=== PATIENT | male | born 1965 | race Caucasian/White ===

== ENCOUNTER 2018-01-16 02:47 | Emergency (ER) | payer SELFPAY ==
[~2018-01-16] VITALS: Ht 193 cm; Wt 84.4 kg
[~2018-01-16 02:47] MED LIST: ATARAX,VISTARIL25 MG PO; AUGMENTIN875 MG PO; METOPROLOL PO; METOPROLOL SUCC25 MG PO; TOPROL XL50 MG PO
[2018-01-16 03:28] LABS: HEMATOCRIT 41.4 % (38.0-50.0); HEMOGLOBIN 14.3 G/DL (12.5-16.6); MCH 30.2 PG (29.0-34.0); MCHC 34.5 G/DL (30.0-36.0); MCV 87.5 FL (86-99); PLATELET COUNT 400 K/uL (156-360); RBC DIS.WIDTH-CV 13.1 % (11.8-14.6); RBC DIS.WIDTH-SD 41.9 % (39-53); RED BLOOD COUNT 4.73 M/uL (4.00-5.50)
[2018-01-16 03:40] LABS: ALBUMIN 4.4 g/dL (3.2-4.8); CHLORIDE 107 mEq/L (99-109); POTASSIUM 3.7 mEq/L (3.7-5.4); SODIUM 143 mEq/L (136-147)
[2018-01-16 03:42] LABS: GLUCOSE 127 mg/dL (70-99); TOTAL PROTEIN 6.7 g/dL (6.4-8.3)
[2018-01-16 03:44] LABS: TOTAL BILIRUBIN 0.4 mg/dL (0.0-1.0)
[2018-01-16 03:46] LABS: ALKALINE PHOSPHATASE 89 IU/L (3-129); GFR ESTIMATE (CALCULATED) > 59 mL/min/ (58.99-99999)
[2018-01-16 03:47] LABS: UREA NITROGEN (BUN) 19 mg/dL (9-23)
[2018-01-16 03:48] LABS: AST (GOT) 19 IU/L (2-34)
[2018-01-16 03:49] LABS: ALT (GPT) 29 IU/L (3-49)
[2018-01-16 03:57] LABS: APPEARANCE CLEAR ((CLEAR)); BILIRUBIN NEGATIVE; BLOOD SMALL; COLOR YELLOW ((YELLOW)); GLUCOSE (STRIP) NEGATIVE; KETONES NEGATIVE; LEUKOCYTES NEGATIVE; NITRITE NEGATIVE; PROTEIN (STRIP) NEGATIVE; SPECIFIC GRAVITY 1.026 (1.000-1.030); UROBILINOGEN 0.2 MG/DL (0.2-1.0)
[2018-01-16 03:59] LABS: BACTERIA NONE SEEN /HPF; EPITHELIAL CELLS RARE /HPF; MUCUS TRACE /LPF; RED BLOOD CELLS 0-5 /HPF (0-5); UCUL ADDED? NO; WHITE BLOOD CELLS NONE SEEN /HPF (0-5)
[2018-01-16 04:33] LABS: LIPASE 37 U/L (1.0-51.0)
[2018-01-16] MEDS ORDERED: BENTYL20 MG PO (04:41)
[2018-01-16 04:55] VITALS: BP 141/93
== END 2018-01-16 04:55 | disposition home or self-care (01) ==
LOC: EME 02:47
DX: R10.9 Unspecified abdominal pain (principal); K58.9 Irritable bowel syndrome, unspecified; F17.200 Nicotine dependence, unspecified, uncomplicated; Z86.79 Personal history of other diseases of the circulatory system; Z85.9 Personal history of malignant neoplasm, unspecified
CPT/HCPCS: 74177; 80053; 81003; 83605; 83690; 85027; 99281; 99285; J7120

== ENCOUNTER 2018-01-27 21:17 | Emergency (ER) | payer SELFPAY ==
[~2018-01-27] VITALS: Ht 193 cm; Wt 82.2 kg
[~2018-01-27 21:17] MED LIST changes: +BENTYL20 MG PO
[2018-01-27 23:12] LABS: HEMATOCRIT 42.4 % (38.0-50.0); HEMOGLOBIN 14.7 G/DL (12.5-16.6); MCH 30.1 PG (29.0-34.0); MCHC 34.7 G/DL (30.0-36.0); MCV 86.7 FL (86-99); PLATELET COUNT 418 K/uL (156-360); RBC DIS.WIDTH-CV 13.2 % (11.8-14.6); RBC DIS.WIDTH-SD 41.3 % (39-53); RED BLOOD COUNT 4.89 M/uL (4.00-5.50); WHITE BLOOD COUNT 8.1 K/uL (4.1-10.2)
[2018-01-27 23:21] LABS: ALBUMIN 4.4 g/dL (3.2-4.8)
[2018-01-27 23:22] LABS: CHLORIDE 108 mEq/L (99-109); POTASSIUM 3.9 mEq/L (3.7-5.4); SODIUM 140 mEq/L (136-147)
[2018-01-27 23:24] LABS: GLUCOSE 103 mg/dL (70-99); TOTAL PROTEIN 6.8 g/dL (6.4-8.3)
[2018-01-27 23:26] LABS: TOTAL BILIRUBIN 0.4 mg/dL (0.0-1.0)
[2018-01-27 23:27] LABS: ALKALINE PHOSPHATASE 89 IU/L (3-129)
[2018-01-27 23:28] LABS: CREATININE 0.9 mg/dL (0.6-1.3); GFR ESTIMATE (CALCULATED) > 59 mL/min/ (58.99-99999)
[2018-01-27 23:29] LABS: AST (GOT) 17 IU/L (2-34); UREA NITROGEN (BUN) 13 mg/dL (9-23)
[2018-01-27 23:31] LABS: ALT (GPT) 31 IU/L (3-49)
[2018-01-27 23:34] LABS: TROP-I INTERPRETATION NEGATIVE; TROPONIN-I 0.01 ng/mL (0.0-0.30)
[2018-01-27] MEDS ORDERED: ATIVAN0.5 MG PO (23:43)
[2018-01-27] MEDS ORDERED: ATARAX,VISTARIL25 MG PO (23:43)
[2018-01-27] MEDS ORDERED: OMEPRAZOLE40 M1 PO (23:43)
[2018-01-27 23:46] VITALS: BP 138/94
== END 2018-01-28 00:12 | disposition home or self-care (01) ==
LOC: EME 21:17
PROVIDERS: Physician Assistant
DX: R14.0 Abdominal distension (gaseous) (principal); F17.200 Nicotine dependence, unspecified, uncomplicated; Z71.6 Tobacco abuse counseling; F41.9 Anxiety disorder, unspecified; I48.0 Paroxysmal atrial fibrillation; K58.9 Irritable bowel syndrome, unspecified
CPT/HCPCS: 80053; 83880; 84484; 85027; 93005; 99281; 99284

== ENCOUNTER 2018-04-23 20:10 | Observation (INO) | payer SELFPAY ==
[~2018-04-23] VITALS: Ht 193 cm; Wt 81.7 kg
[~2018-04-23 20:10] MED LIST changes: +ATIVAN0.5 MG PO; +OMEPRAZOLE40 M1 PO
[2018-04-23 20:39] LABS: HEMATOCRIT 42.5 % (38.0-50.0); HEMOGLOBIN 14.5 G/DL (12.5-16.6); MCH 29.5 PG (29.0-34.0); MCHC 34.1 G/DL (30.0-36.0); MCV 86.4 FL (86-99); PLATELET COUNT 402 K/uL (156-360); RBC DIS.WIDTH-CV 13.6 % (11.8-14.6); RBC DIS.WIDTH-SD 42.8 % (39-53); RED BLOOD COUNT 4.92 M/uL (4.00-5.50); WHITE BLOOD COUNT 8.7 K/uL (4.1-10.2)
[2018-04-23 20:50] LABS: CHLORIDE 105 mEq/L (99-109); POTASSIUM 4.2 mEq/L (3.7-5.4); SODIUM 138 mEq/L (136-147)
[2018-04-23 20:52] LABS: GLUCOSE 115 mg/dL (70-99)
[2018-04-23 20:56] LABS: GFR ESTIMATE (CALCULATED) > 59 mL/min/ (58.99-99999); UREA NITROGEN (BUN) 18 mg/dL (9-23)
[2018-04-23 20:59] LABS: TROP-I INTERPRETATION NEGATIVE; TROPONIN-I < 0.01 ng/mL (0.0-0.30)
[2018-04-23 22:12] LABS: MAGNESIUM 2.6 mg/dL (1.3-2.7)
[2018-04-23 22:18] LABS: CREATINE KINASE 62 IU/L (1-294)
[2018-04-23] MEDS ORDERED: RANITIDINE HCL150 MG PO (22:19)
[2018-04-23] MEDS ORDERED: ONE DAILY FOR1 EAC2 PO (22:23)
[2018-04-23] MEDS ORDERED: ASPIRIN325 MG PO (22:23)
[2018-04-24 02:06] LABS: APPEARANCE CLEAR ((CLEAR)); BILIRUBIN NEGATIVE; BLOOD NEGATIVE; COLOR YELLOW ((YELLOW)); GLUCOSE (STRIP) NEGATIVE; KETONES NEGATIVE; LEUKOCYTES NEGATIVE; NITRITE NEGATIVE; PROTEIN (STRIP) NEGATIVE; SPECIFIC GRAVITY 1.019 (1.000-1.030); UROBILINOGEN 0.2 MG/DL (0.2-1.0)
[2018-04-24 03:00] VITALS: BP 111/73; BP 114/83; BP 131/91
[2018-04-24 06:00] LABS: TROP-I INTERPRETATION NEGATIVE; TROPONIN-I < 0.01 ng/mL (0.0-0.30)
[2018-04-24 07:16] VITALS: BP 130/71
[2018-04-24 10:30] LABS: BENZODIAZEPINES, URINE SCREEN Negative (200 ng/mL)
[2018-04-24 11:24] VITALS: BP 126/77
[2018-04-24] MEDS ORDERED: HYDROXYZINE HCL25 MG PO (11:41)
[2018-04-24] MEDS ORDERED: OMEPRAZOLE40 M1 PO (11:44)
[2018-04-24] MEDS ORDERED: ATIVAN0.5 MG PO (11:44)
== END 2018-04-24 12:12 | disposition home or self-care (01) ==
LOC: EME 20:10 → EDOF 04-24 01:55 → ENRESERV 04-24 01:57 → 4SOUTH 04-24 03:16
PROVIDERS: Hospitalist; Physician Assistant
PROC: B246ZZZ Ultrasonography of Right and Left Heart (ICD-10-PCS; principal; 2018-04-24)
DX: R55 Syncope and collapse (principal); I48.0 Paroxysmal atrial fibrillation; Z79.82 Long term (current) use of aspirin; F41.9 Anxiety disorder, unspecified; R32 Unspecified urinary incontinence; F17.210 Nicotine dependence, cigarettes, uncomplicated; R00.2 Palpitations; R51 Headache; M62.838 Other muscle spasm; M54.12 Radiculopathy, cervical region
CPT/HCPCS: 70450; 71046; 72125; 80048; 80306 90; 81003; 82550; 83735; 84484; 85027; 93005; 93306; 99281; 99285; G0378; J1650; J2060; J7030